=== PATIENT | female | born 2000 | race Caucasian/White ===

== ENCOUNTER 2021-02-05 21:05 | Emergency (ER) | payer OTHER ==
[~2021-02-05] VITALS: Ht 162.6 cm; Wt 94.5 kg
[2021-02-05] MEDS ORDERED: xyzal PO (21:29)
[2021-02-05 22:51] LABS: BASO # 0.1 10^3/uL (0.0-0.2); BASO % 0.6 % (0.0-1.0); EOS # 0.4 10^3/uL (0.0-0.5); EOS % 3.6 % (0.0-3.0); HEMATOCRIT 44.7 % (36.0-47.0); LYMPH # 2.4 10^3/uL (1.5-5.0); LYMPH % 22.5 % (24.0-44.0); MEAN CORPUSCULAR HEMOGLOBIN 30.1 pg (27.0-33.0); MEAN CORPUSCULAR HGB CONC 33.6 g/dl (32.0-36.5); MEAN CORPUSCULAR VOLUME 89.8 fl (80.0-96.0); MONO # 0.8 10^3/uL (0.0-0.8); MONO % 7.6 % (2.0-8.0); NEUTROPHILS # 6.9 10^3/uL (1.5-8.5); NEUTROPHILS % 65.4 % (36.0-66.0); PLATELET COUNT, AUTOMATED 178 10^3/uL (150-450); RED BLOOD COUNT 4.98 10^6/uL (4.00-5.40); WHITE BLOOD COUNT 10.5 10^3/uL (4.0-10.0)
[2021-02-05 23:19] LABS: ALBUMIN 3.6 GM/DL (3.2-5.2); ALT/SGPT 31 U/L (12-78); BILIRUBIN,DIRECT < 0.1 MG/DL (0.0-0.2); BILIRUBIN,TOTAL 0.3 MG/DL (0.2-1.0); LIPASE 77 U/L (73-393); TOTAL PROTEIN 6.6 GM/DL (6.4-8.2)
[2021-02-06] MEDS: ONDANSETRON 4MG/2ML VIAL IV ONE ×2 (00:07→00:20)
[2021-02-06] MEDS: NS 1,000 ML IV ONE ×2 (00:07→00:20)
[2021-02-06] MEDS ORDERED: ONDA4TAB6 PO (01:36)
--- NOTE | 2021-02-06 01:50 | REPVR ---
PROCEDURE INFORMATION: Exam: US First Trimester, Transabdominal and US , Transvaginal Exam date and time: 02/06/2021 12:38 AM Age: 20 years old Clinical indication: Other: Lt pelvic pain; Gestational age or lmp: 6wks; ; Additional info: L pelvic pain, RO ovarian cyst, ectopic TECHNIQUE: Imaging protocol: Real-time transabdominal obstetrical ultrasound of the maternal pelvis and a first trimester , less than 14 weeks 0 days, with image documentation. Transvaginal imaging was used for better evaluation of the fetus, adnexa, and/or cervix. COMPARISON: No relevant prior studies available. FINDINGS: Gestation: A single intrauterine gestational sac is visualized, with pole and yolk sac. Embryonic/ heart rate: heart motion is visualized, with a heart rate of 106 BPM, which is at the low end of normal. Extra-embryonic membranes/Placenta: No subchorionic bleed. Amniotic fluid: Amniotic fluid is subjectively normal for gestational age. BIOMETRY: Gestational age (AUA): The estimated gestational age is 5 weeks 6 days. MATERNAL: Uterus: The uterus measures 7.7 x 3.7 x 5.3 cm. No uterine mass visualized. Cervix: Unremarkable, as visualized. Right adnexa: The right ovary measures 2.4 x 1.5 x 2.5 cm. Evaluation of the right ovary is limited. There is preservation of blood flow within the right ovary. A small follicle is seen within the right ovary. Left adnexa: The left ovary measures 3.0 x 1.8 x 1.7 cm. Within the left ovary, there is a 1.6 x 1.4 x 1.7 cm complex cyst or corpus luteum cyst. A hemorrhagic component cannot be excluded. There is preservation of blood flow within the left ovary. Intraperitoneal space: No intraperitoneal free fluid. Urinary bladder: The bladder measures 7.1 x 3.4 x 3.4 cm. No significant bladder wall thickening visualized. IMPRESSION: 1. A single viable intrauterine fetus is identified. 2. The estimated gestational age is 5 weeks 6 days. 3. heart motion is visualized, with a heart rate of 106 BPM, which is at the low end of normal. 4. Within the left ovary, there is a 1.6 x 1.4 x 1.7 cm complex cyst or corpus luteum cyst. A hemorrhagic component cannot be excluded. 5. Follow-up ultrasonography recommended. Electronically signed by: Ever Gallo On 02/06/2021 01:49:36 AM
[2021-02-06 02:35] VITALS: BP 135/71
== END 2021-02-06 02:45 | disposition home or self-care (01) ==
LOC: M ED 21:05
DX: O34.81 Maternal care for other abnormalities of pelvic organs, first trimester (principal); N83.209 Unspecified ovarian cyst, unspecified side; Z3A.01 Less than 8 weeks gestation of pregnancy; Z79.899 Other long term (current) drug therapy

== ENCOUNTER → 2021-08-26 | Outpatient (REF) | payer OTHER ==
[~2021-08-26] MED LIST: ONDA4TAB6 PO; xyzal PO
== END ==
LOC: M LAB REF 09:29
PROVIDERS: ATTEND Physician Assistant
DX: J02.9 Acute pharyngitis, unspecified (principal)

== ENCOUNTER 2021-09-10 17:32 | Outpatient (CLI) | payer OTHER ==
[~2021-09-10] VITALS: Ht 162.6 cm; Wt 112.5 kg
[2021-09-10] MEDS ORDERED: ACET325C5 PO (17:44)
[2021-09-10] MEDS ORDERED: PRENTAB9 PO (17:44)
[2021-09-10] MEDS ORDERED: HOME MED LIST COMPLETE! XX SCH (17:45)
[2021-09-10 17:46] VITALS: BP 120/76
[2021-09-10 18:03] VITALS: BP 137/72
[2021-09-10] MEDS ORDERED: ACETAMINOPHEN 500 MG TAB PO ONE (18:05)
[2021-09-10] MEDS ORDERED: LR 500 ML IV ONE (18:05)
[2021-09-10] MEDS ORDERED: LR 1,000 ML IV SCH (18:05)
[2021-09-10 18:40] LABS: HEMATOCRIT 34.3 % (36.0-47.0); HEMOGLOBIN 11.2 g/dl (12.0-15.5); MEAN CORPUSCULAR HEMOGLOBIN 28.3 pg (27.0-33.0); MEAN CORPUSCULAR HGB CONC 32.7 g/dl (32.0-36.5); MEAN CORPUSCULAR VOLUME 86.6 fl (80.0-96.0); PLATELET COUNT, AUTOMATED 120 10^3/uL (150-450); RED BLOOD COUNT 3.96 10^6/uL (4.00-5.40); WHITE BLOOD COUNT 11.1 10^3/uL (4.0-10.0)
[2021-09-10 18:42] VITALS: BP 123/69
[2021-09-10 19:10] VITALS: BP 129/75
[2021-09-10 19:10] LABS: ALT/SGPT 19 U/L (12-78); BILIRUBIN,TOTAL 0.3 MG/DL (0.2-1.0); CREATININE FOR GFR 0.61 MG/DL (0.55-1.30); LDH LACTATE DEHYDROGENASE 201 U/L (84-246); URIC ACID 3.5 MG/DL (2.6-6.0)
[2021-09-10 19:38] VITALS: BP 131/74
[2021-09-10 19:58] LABS: CREATININE,RANDOM URINE 79.3 MG/DL; TOTAL PROTEIN,RANDOM URINE 19.2 MG/DL (0.0-12.0)
[2021-09-10 20:08] VITALS: BP 125/66
== END 2021-09-10 20:51 | disposition home or self-care (01) ==
LOC: M LDO 17:32
PROVIDERS: ATTEND Obstetrics & Gynecology
DX: O26.893 Other specified pregnancy related conditions, third trimester (principal); R51.9 Headache, unspecified; Z3A.37 37 weeks gestation of pregnancy
CPT/HCPCS: 59025; 82247; 82565; 82570; 83615; 84156; 84450; 84460; 84550; 85027; G0378; G0463

== ENCOUNTER 2021-09-20 08:28 | Inpatient (IN) | payer OTHER ==
[~2021-09-20] VITALS: Ht 162.6 cm; Wt 115.5 kg
[2021-09-20] VITALS (38 sets, daily range): BP systolic 111–148; BP diastolic 59–91
[~2021-09-20 08:28] MED LIST changes: +ACET325C5 PO; +PRENTAB9 PO
[2021-09-20] MEDS ORDERED: METHYLERGONOVINE MALEATE 0.2 MG/ML VIAL (J2210) IM PRN (09:20)
[2021-09-20] MEDS ORDERED: OXYTOCIN DRIP 30 UNITS in IV 1 EA IV PRN (09:20)
[2021-09-20] MEDS ORDERED: LIDOCAINE 1% MDV 20ML VIAL INFIL PRN (09:20)
[2021-09-20] MEDS ORDERED: HOME MED LIST COMPLETE! XX SCH (09:40)
[2021-09-20 10:51] LABS: HEMATOCRIT 32.3 % (36.0-47.0); HEMOGLOBIN 10.4 g/dl (12.0-15.5); MEAN CORPUSCULAR HEMOGLOBIN 28.1 pg (27.0-33.0); MEAN CORPUSCULAR HGB CONC 32.2 g/dl (32.0-36.5); MEAN CORPUSCULAR VOLUME 87.3 fl (80.0-96.0); PLATELET COUNT, AUTOMATED 106 10^3/uL (150-450); WHITE BLOOD COUNT 10.1 10^3/uL (4.0-10.0)
[2021-09-20] MEDS ORDERED: LR 1,000 ML IV SCH (11:25)
[2021-09-20] MEDS ORDERED: OXYTOCIN DRIP 30 UNITS in IV 1 EA IV SCH (11:25)
[2021-09-20] MEDS ORDERED: ACETAMINOPHEN 500 MG TAB PO ONE (11:45)
[2021-09-20] MEDS: LR 1,000 ML IV SCH (13:29)
[2021-09-20] MEDS ORDERED: PROMETHAZINE INJ 25 MG/ML VIAL (J2550) IV PRN (17:30)
[2021-09-20] MEDS ORDERED: BUTORPHANOL 2 MG/ML INJ (J0595) IV PRN (17:30)
[2021-09-20] MEDS ORDERED: FENTANYL 2MCG/ML ROPIVACAINE 0.2% IN 0.9% NACL 100ML IVBAG As Ordered ONE (20:14)
[2021-09-20] MEDS ORDERED: REFRIGERATOR IV KEYS XX PRN (20:15)
[2021-09-20] MEDS ORDERED: NALOXONE INJ 0.4MG/1ML VIAL (J2310 PER 1MG) IV PRN (20:15)
[2021-09-20] MEDS ORDERED: diphenhydrAMINE 50MG/ML VIAL (J1200) IV PRN (20:15)
[2021-09-20] MEDS ORDERED: ONDANSETRON 4MG/2ML VIAL IV PRN (20:15)
[2021-09-20] MEDS: FENTANYL/ROPIVACAINE/NACL BAG 100 ML EPIDURAL SCH (20:15)
[2021-09-20] MEDS ORDERED: EPIDURAL/PCA KEYS XX PRN (20:15)
[2021-09-20] MEDS ORDERED: LACTATED RINGER'S 1000 ML IV PRN (20:15)
[2021-09-20] MEDS ORDERED: EPIDURAL COMMENT XX SCH (20:15)
[2021-09-20] MEDS ORDERED: ePHEDrine SULFATE 25 MG/5 ML(5MG/ML) SYRINGE IV PRN (20:15)
[2021-09-21] VITALS (8 sets, daily range): BP systolic 118–147; BP diastolic 65–91
[2021-09-21] MEDS ORDERED: ONDANSETRON 4MG/2ML VIAL As Ordered ONE (00:08)
[2021-09-21] MEDS ORDERED: dexameTHASONE 4 MG/ML 1ML VIAL (J1100 PER 1MG) As Ordered ONE (00:08)
[2021-09-21] MEDS ORDERED: BICITRA 30ML SOLN UDC As Ordered ONE (00:08)
[2021-09-21] MEDS ORDERED: KETOROLAC 60MG 2ML VIAL As Ordered ONE (00:08)
[2021-09-21] MEDS ORDERED: ceFAZolin 2 GM/D5W 50 ML IV BAG (J0690 PER 500MG) As Ordered ONE (00:08)
[2021-09-21] MEDS ORDERED: OXYTOCIN INJ 10 UNITS/ML VIAL (J2590) As Ordered ONE (00:08)
[2021-09-21] MEDS ORDERED: LIDOCAINE 2% W/EPINEPHRINE 20ML VIAL **PRES FREE As Ordered ONE (00:15)
[2021-09-21] MEDS ORDERED: AZITHROMYCIN INJ 500MG VIAL As Ordered ONE (00:15)
[2021-09-21] MEDS ORDERED: ceFAZolin SOD 2 GM in IV 1 EA IV ONE (00:20)
[2021-09-21] MEDS ORDERED: fentaNYL 100 MCG/2 ML INJECTION As Ordered ONE (00:20)
[2021-09-21] MEDS ORDERED: MORPHINE PRES-FREE INJ 10 MG/10 ML VIAL (J2274) As Ordered ONE (00:20)
[2021-09-21] MEDS ORDERED: AZITHROMYCIN INJ 500 MG, VIAL MATE ADAPTER 1 EACH in NS 250 ML IV ONE (00:20)
[2021-09-21] MEDS ORDERED: BICITRA 30ML SOLN UDC PO ONE (00:20)
[2021-09-21] MEDS ORDERED: diphenhydrAMINE 50MG/ML VIAL (J1200) IV PRN (00:48)
[2021-09-21] MEDS ORDERED: NALOXONE INJ 0.4MG/1ML VIAL (J2310 PER 1MG) IV PRN ×2 (00:48)
[2021-09-21] MEDS ORDERED: NALBUPHINE HCL 10 MG/ML AMP (J2300) IV PRN (00:48)
[2021-09-21] MEDS ORDERED: ONDANSETRON 4MG/2ML VIAL IV PRN ×3 (00:48→02:15)
[2021-09-21] MEDS ORDERED: METOCLOPRAMIDE INJ 10MG/2ML VIAL (J2765 PER 1) IV PRN (00:48)
[2021-09-21] MEDS: LR 1,000 ML IV SCH ×4 (01:45→17:41)
[2021-09-21] MEDS ORDERED: RHOGAM 300 MCG (1500 IU) INJ (J2790) IM SCH (02:05)
[2021-09-21] MEDS ORDERED: MEASLES,MUMPS,RUBELLA VACCINE INJ (MMR-II) (90707) SC SCH (02:05)
[2021-09-21] MEDS ORDERED: MORPHINE 2 MG/ML 1ML VIAL (J2270) IV PRN (02:05)
[2021-09-21] MEDS ORDERED: SIMETHICONE 80MG CHEW TAB PO PRN (02:05)
[2021-09-21] MEDS ORDERED: oxyCODONE 5MG TAB PO PRN (02:05)
[2021-09-21] MEDS ORDERED: DOCUSATE SODIUM 100MG CAPSULE PO PRN (02:05)
[2021-09-21] MEDS ORDERED: OXYTOCIN DRIP 30 UNITS in IV 1 EA IV SCH (02:05)
[2021-09-21] MEDS ORDERED: KETOROLAC 30 MG/ML 1ML VIAL IV PRN (02:15)
[2021-09-21] MEDS ORDERED: MEPERIDINE INJ 25 MG/ML VIAL (J2175) IV PRN (02:15)
[2021-09-21] MEDS ORDERED: fentaNYL 100 MCG/2 ML INJECTION IV PRN (02:15)
[2021-09-21] MEDS ORDERED: FUROSEMIDE 10MG PER 1/2 TABLET PO ONE (02:15)
[2021-09-21] MEDS ORDERED: NORCO, ANEXSIA 5/325MG TABLET (HYDROcodone/ACETAMINOPHEN) PO PRN (02:15)
[2021-09-21] MEDS ORDERED: OXYTOCIN 30 UNITS IN 0.9% NaCl 500ML IV BAG (J2590) As Ordered ONE (02:48)
[2021-09-21] MEDS: FENTANYL/ROPIVACAINE/NACL BAG 100 ML EPIDURAL SCH (06:15)
[2021-09-21] MEDS: PRENATAL VITAMINS CHEWABLE TABLET PO SCH (08:40)
[2021-09-21] MEDS: KETOROLAC 30 MG/ML 1ML VIAL IV SCH ×3 (08:40→20:53)
[2021-09-21 11:27] LABS: ALBUMIN 1.8 GM/DL (3.2-5.2); ALT/SGPT 10 U/L (12-78); BILIRUBIN,TOTAL 0.2 MG/DL (0.2-1.0); BLOOD UREA NITROGEN 11 MG/DL (7-18); CALCIUM LEVEL 8.5 MG/DL (8.5-10.1); CARBON DIOXIDE LEVEL 25 MEQ/L (21-32); CHLORIDE LEVEL 107 MEQ/L (98-107); CREATININE FOR GFR 0.77 MG/DL (0.55-1.30); GLUCOSE, FASTING 95 MG/DL (70-100); POTASSIUM SERUM 4.2 MEQ/L (3.5-5.1); SODIUM LEVEL 139 MEQ/L (136-145)
[2021-09-21] MEDS: oxyCODONE 5MG TAB PO PRN (18:09)
[2021-09-22] MEDS: LR 1,000 ML IV SCH (01:45)
[2021-09-22] MEDS: IBUPROFEN 800 MG TAB PO SCH ×3 (04:00→20:57)
[2021-09-22 06:00] VITALS: BP 142/83
[2021-09-22 06:25] LABS: HEMATOCRIT 27.2 % (36.0-47.0); HEMOGLOBIN 8.7 g/dl (12.0-15.5); MEAN CORPUSCULAR HEMOGLOBIN 28.6 pg (27.0-33.0); MEAN CORPUSCULAR VOLUME 89.5 fl (80.0-96.0); RED BLOOD COUNT 3.04 10^6/uL (4.00-5.40); WHITE BLOOD COUNT 9.2 10^3/uL (4.0-10.0)
[2021-09-22 07:58] LABS: PLATELET COUNT, AUTOMATED 87 10^3/uL (150-450)
[2021-09-22] MEDS: ACETAMINOPHEN 500 MG TAB PO PRN ×3 (08:55→22:36)
[2021-09-22] MEDS: oxyCODONE 5MG TAB PO PRN ×3 (08:55→21:39)
[2021-09-22] MEDS: PRENATAL VITAMINS CHEWABLE TABLET PO SCH (09:00)
[2021-09-22 10:00] VITALS: BP 120/71
[2021-09-22 14:05] VITALS: BP 136/83
[2021-09-22 18:07] VITALS: BP 136/92
[2021-09-22 22:00] VITALS: BP 142/72
[2021-09-23 02:00] VITALS: BP 130/81
[2021-09-23] MEDS: IBUPROFEN 800 MG TAB PO SCH ×2 (03:40→11:34)
[2021-09-23] MEDS ORDERED: ACET325C5 PO (05:49)
[2021-09-23] MEDS ORDERED: COLA100C5 PO (05:49)
[2021-09-23] MEDS ORDERED: PRENCHW PO (05:49)
[2021-09-23] MEDS ORDERED: OXYC-517 PO (05:49)
[2021-09-23] MEDS ORDERED: IBUP80TA PO (05:49)
[2021-09-23 06:00] VITALS: BP 134/80
[2021-09-23] MEDS: PRENATAL VITAMINS CHEWABLE TABLET PO SCH (09:10)
== END 2021-09-23 18:08 | disposition home or self-care (01) | DRG 773 ==
LOC: M LDO 08:28 → M LDI 09:18 → M OBS 09-21 03:28
PROVIDERS: ADMIT Obstetrics & Gynecology; ATTEND Obstetrics & Gynecology
PROC: 10D00Z1 Extraction of Products of Conception, Low, Open Approach (ICD-10-PCS; principal; 2021-09-21 00:10)
DX: O80 Encounter for full-term uncomplicated delivery (principal); Z37.0 Single live birth